=== PATIENT | male | born 1965 | race African-American/Black ===

== ENCOUNTER 2022-08-28 06:51 | Day surgery (SDC) | payer OTHER ==
[~2022-08-28 06:51] MED LIST: SODIUM CHLORIDE 0.9% 1,000 ML IV ONE
[2022-08-28 07:10] LABS: COVID AG,FIA SOURCE NASAL SWAB
[2022-08-28] MEDS ORDERED: MIDAZOLAM HCL 2 MG/2 ML VIAL ONE (07:46)
[2022-08-28] MEDS ORDERED: FentaNYL CITRATE PF 100 MCG/2 ML VIAL ONE (07:47)
[2022-08-28] MEDS ORDERED: SENN-187 PO (08:06)
[2022-08-28] MEDS ORDERED: ATOR40TA71 PO (08:06)
[2022-08-28] MEDS ORDERED: SACU1TAB PO (08:06)
[2022-08-28] MEDS ORDERED: DILT30TA4 PO (08:06)
[2022-08-28] MEDS ORDERED: INSU100V39 SQ (08:06)
[2022-08-28] MEDS ORDERED: SPIR-37 PO (08:06)
[2022-08-28] MEDS ORDERED: DAPA10TA PO (08:06)
[2022-08-28] MEDS ORDERED: INSU100I68 SQ (08:06)
[2022-08-28] MEDS ORDERED: INSU100I40 SQ (08:06)
[2022-08-28] MEDS ORDERED: APIX5TAB PO (08:06)
[2022-08-28] MEDS ORDERED: CARV12.530 PO (08:06)
[2022-08-28] MEDS ORDERED: MULT-248 PO (08:06)
[2022-08-28] MEDS ORDERED: ASCO500 PO (08:06)
[2022-08-28] MEDS ORDERED: MethylPREDNISolone SOD SUCC 125 MG/2 ML VIAL IVP ONE (09:30)
[2022-08-28] MEDS ORDERED: MethylPREDNISolone SOD SUCC 125 MG/2 ML VIAL ONE (09:34)
[2022-08-28 09:41] LABS: GLUCOMETER DEV NAME(LOC) SDS.; GLUCOSE,POINT OF CARE 131 MG/DL (70-110)
== END 2022-08-28 11:30 | disposition home or self-care (01) ==
LOC: SURGERY 06:51
PROVIDERS: ATTEND Internal Medicine Critical Care Medicine
DX: R05.3 Chronic cough (principal); I10 Essential (primary) hypertension; E78.00 Pure hypercholesterolemia, unspecified; I69.359 Hemiplegia and hemiparesis following cerebral infarction affecting unspecified side; E11.9 Type 2 diabetes mellitus without complications; Z79.899 Other long term (current) drug therapy
CPT/HCPCS: 31623; 88112; 82962; 87206; 87101; 87220; 87070; 87186; 31624; 94640; 71045; 87015; 87426; J3010; J2250; J2930; C9803